=== PATIENT | female | born 1970 ===

== ENCOUNTER 2022-02-13 06:35 | Day surgery (SDC) | payer OTHER ==
[~2022-02-13 06:35] MED LIST: FENOFIBRIC ACID45 MG PO; LEVOTHYROXINE25 MCG PO
[2022-02-13] MEDS ORDERED: KETO10TA2 PO (12:22)
[2022-02-13] MEDS ORDERED: PERCOCET 5-3251 EACH PO (12:22)
[2022-02-13] MEDS ORDERED: DERMOPLAST PAIN78 GM TOP (12:23)
[2022-02-13] MEDS ORDERED: NEURONTIN300 MG PO (12:23)
== END 2022-02-13 16:45 | disposition home or self-care (01) ==
LOC: CIR.AMB 06:35
PROVIDERS: ATTEND Surgery
DX: K60.3 Anal fistula (principal); K92.2 Gastrointestinal hemorrhage, unspecified; E03.9 Hypothyroidism, unspecified; F41.9 Anxiety disorder, unspecified; R42 Dizziness and giddiness; Z20.822 Contact with and (suspected) exposure to COVID-19